=== PATIENT | female | born 1975 | race Asian ===

== ENCOUNTER 2020-02-26 14:57 | Emergency (ER) | payer OTHER ==
[~2020-02-26] VITALS: Ht 157.5 cm; Wt 54.4 kg
[2020-02-26 15:06] VITALS: BP 119/73
--- NOTE | 2020-02-26 15:48 | NUR ---
Patient discharged to home in stable condition. Written and verbal after care instructions given. Patient verbalizes understanding of instruction.
--- NOTE | 2020-02-29 05:12 | NUR ---
REC'D NEGATIVE RESULT FOR COVID TEST.
== END 2020-02-26 15:48 | disposition home or self-care (01) ==
LOC: ER 15:03
DX: R50.9 Fever, unspecified (principal); J02.9 Acute pharyngitis, unspecified; R51.9 Headache, unspecified; Z20.828 Contact with and (suspected) exposure to other viral communicable diseases
CPT/HCPCS: 99283; C9803; U0003

== ENCOUNTER 2020-03-30 19:21 | Emergency (ER) | payer OTHER ==
[~2020-03-30] VITALS: Ht 157.5 cm; Wt 54.4 kg
[2020-03-30 19:33] VITALS: BP 111/77
--- NOTE | 2020-03-30 20:14 | NUR ---
REC'D COVID POS RESULTS. AWARE
--- NOTE | 2020-03-30 20:33 | NUR ---
INFORMED PT OF POSITIVE COVID RESULTS. PT VERBALIZED UNDERSTANDING
== END 2020-03-30 19:49 | disposition home or self-care (01) ==
LOC: ER 19:27
DX: U07.1 COVID-19 (principal)
CPT/HCPCS: 87426; 99283; C9803; U0003